=== PATIENT | male | born 1975 | race Caucasian/White ===

== ENCOUNTER 2017-01-01 18:03 | Emergency (ER) | payer OTHER ==
[2017-01-01] MEDS ORDERED: OXYCODONE-ACETAMINOPHEN 5-325 MG TABLET PO ONE (19:50)
[2017-01-01] MEDS ORDERED: AMOXICILLIN TR/POT CLAVULANATE 500-125 MG TAB PO ONE (19:50)
--- NOTE | 2017-01-01 20:10 | ER Document Report ---
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 He was seen by his workers comp doctor who did a x-ray and he has a CD of the x-ray which she states they told him he had a fracture to the end of his thumb that was bleeding. He did have a subungual hematoma. Patient states she was not treated with any pain medication at the [facility] where he went [facility]. He states the bleeding was not controlled while at [facility] but there is very minimal bleeding at this time. TRAVEL OUTSIDE OF THE [place] 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 Lives with: Family Family History: Arthritis, CAD, COPD, CVA, Hyperlipidemia, Hypertension, Malignancy Patient has suicidal ideation: No Patient has homicidal ideation: No - Past Medical History Cardiac Medical History: Reports: Hx Hypertension Pulmonary Medical History: Reports: None EENT Medical History: Reports: None Neurological Medical History: Reports: None Endocrine Medical History: Reports: None Renal/ Medical History: Reports: None Malignancy Medical History: Reports None GI Medical History: Reports: None Musculoskeltal Medical History: Reports Hx Arthritis, Reports Hx Musculoskeletal Deformity, Reports Hx Musculoskeletal Trauma Skin Medical History: Reports None Psychiatric Medical History: Reports: None Traumatic Medical History: Reports: None Infectious Medical History: Reports: None Past Surgical History: Reports: Hx Appendectomy, Hx Oral Surgery - [place] teeth and polyps removed from vocal cords, Hx Orthopedic Surgery - Knee surgery torn PCL MCL and meniscus - Immunizations Immunizations up to date: Yes Hx Diphtheria, Pertussis, Tetanus Vaccination: Yes Review of Systems - Review of Systems Constitutional: No symptoms reported EENT: No symptoms reported Cardiovascular: No symptoms reported Respiratory: No symptoms reported Gastrointestinal: No symptoms reported Genitourinary: No symptoms reported Male Genitourinary: No symptoms reported Musculoskeletal: Other - Injury to distal left thumb with a subungual hematoma Skin: Other - Subungual hematoma with bleeding to the end of the left thumb Hematologic/Lymphatic: No symptoms reported Neurological/Psychological: No symptoms reported Physical Exam - Vital signs Vitals: Temp Pulse Resp BP Pulse Ox 98.0 F 83 14 145/97 H 98 01/01/17 18:08 01/01/17 18:08 01/01/17 18:08 01/01/17 18:08 01/01/17 18:08 Interpretation: Normal - General General appearance: Appears well, Alert - HEENT Head: Normocephalic, Atraumatic Eyes: Normal Pupils: PERRL - Respiratory Respiratory status: No respiratory distress Chest status: Nontender Breath sounds: Normal Chest palpation: Normal - Cardiovascular Rhythm: Regular Heart sounds: Normal auscultation Murmur: No - Abdominal Inspection: Normal Distension: No distension Bowel sounds: Normal Tenderness: Nontender Organomegaly: No organomegaly - Back Back: Normal, Nontender - Extremities General upper extremity: Normal temperature General lower extremity: Normal inspection, Nontender, Normal color, Normal ROM , Normal temperature, Normal weight bearing. No: Benitez's sign Hand: Tender, Ecchymosis, Nail injury, No evidence of human bite, No evidence of FB, Swelling, Other - Subungual hematoma was bleeding from under the nail small laceration before the nail. Patient states he has a CD that shows a fracture to the tuft of the thumb left. Unable to read the CD - Neurological Neuro grossly intact: Yes Cognition: Normal Orientation: AAOx4 [place] Coma Scale Eye Opening: Spontaneous Page Coma Scale Verbal: Oriented [place] Coma Scale Motor: Obeys Commands Page Coma Scale Total: 15 Speech: Normal Motor strength normal: LUE, RUE, LLE, RLE Sensory: Normal - Psychological Associated symptoms: Normal affect, Normal mood - Skin Skin Temperature: Warm Skin Moisture: Dry Skin Color: Normal Course - Re-evaluation Re-evalutation: 01/01/17 21:08 Patient's hand was cleaned well with soap and water and peroxide. Consulted Dr. ferreira who came and examined the thumb he agreed with the plan to use trepanation to release the pressure from under the left thumbnail then the subcu thumb with some Betadine treat the patient with Percocet and Augmentin dressed the thumb is splinted and have him follow-up with orthopedics. These were all completed patient was sent home with a prescription for Percocet and Augmentin. Patient to follow-up with orthopedics by telephone on Wednesday to schedule an appointment for a open tuft fracture of the left thumb. 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 Exam: Normal Alignment checked and good: Yes - Nail Trephanation/Removal Left Thumb Nail Trepanation/Removal Location: Eburnation to the left thumb with return of blood Betadine prep applied: Yes Method of Drainage: Nail cauterized Sterile Dressing Applied: Yes Finger Splint: Yes Discharge - Discharge Clinical Impression: Open fracture of distal phalanx of thumb Qualifiers: Encounter type: initial encounter Fracture alignment: nondisplaced Laterality: left Qualified Code(s): S62.525B - Nondisplaced fracture of distal phalanx of left thumb, initial encounter for open fracture Subungual hematoma of left thumb Qualifiers: Encounter type: initial encounter Qualified Code(s): S60.112A - Contusion of left thumb with damage to nail, initial encounter Condition: Stable Disposition: HOME, SELF-CARE Additional Instructions: Tuft Fracture of the Finger The tip of your finger is broken (beneath the finger nail). While painful , this type of fracture is not serious. You can expect the bone to heal within three to four weeks. Elevating and ice packing the finger will help greatly in reducing pain and swelling. You will probably need a protective splint, initially. When you can push firmly on the tip of your finger without any pain, you no longer need to use the splint. If the fingernail becomes black and painful, bleeding has occurred under the nail. This may need to be drained. Sometimes the nail must be removed. Occasionally, the tissue under the nail must be sewn back together. Call the doctor or return for examination if pain becomes severe, or if numbness or severe discoloration occurs. Subungual Hematoma You have a collection of blood between the nail bed and nail, called a subungual hematoma. This injury is often very painful due to the pressure that builds up under the nail. The pressure is relieved by draining blood from beneath the nail, either by creating some small holes in it, or by the nail from the skin. This will usually stop the pain. Sometimes the nail must be removed completely to examine the nail bed for injury. You should elevate the injured digit as much as possible for the next two days. Usually the injured nail will separate from its bed over the next few weeks. A new nail will grow over the exposed nail bed. This may take two or three months. If swelling around the cuticle, redness, fever, or increasing pain occur, you should call the doctor immediately. Augmentin Augmentin is a mixture of amoxicillin and clavulanate. Amoxicillin is a member of the penicillin family. It covers the germs likely to cause ear, bronchial, and urinary infections better than plain penicillin. The addition of clavulanate allows it to cover staph infections of the skin, as well as resistant cases of ear and sinus infections. Your physician has chosen Augmentin for you because of the special nature of your situation. Augmentin is best taken with meals. Nausea after taking the medication is rare, but can occur. Diarrhea can occur, particularly in small children. Vaginal yeast infections, and oral thrush in infants are also common. Contact your physician if these problems occur. Allergy to penicillins is common. If you have had an allergic reaction to any drug of the penicillin family, you should never take any other penicillin. Notify your doctor at once if you develop hives, shortness of breath, swelling, or faintness. SPLINT PRECAUTIONS: A splint has been placed. This will protect the area while healing begins. Your problem does NOT normally require a cast. It MUST, however, be held still! Keep the splint on ALL THE TIME until instructed to remove it by the doctor. As you begin to use the area, be careful. You shouldn't do anything which causes discomfort -- you may disturb the injury even with the splint in place. After the initial period of rest and elevation, if splint does not prevent pain when you move, come back. You may require placement of a different splint , or a cast. If there is unexpected severe pain, or numbness, discoloration, or swelling beyond the splint, you should return at once. If you feel that the splint has broken or become loose, come back. ICE & ELEVATION: Apply ice packs frequently against the painful area. Many different schedules are recommended, such as "20 minutes on, 20 minutes off" or "one hour ice, two hours rest." If you need to work, you may need to go longer between ice treatments. You should plan to have the area ice packed AT LEAST one- fourth of the time. The ice should be applied over the wrap, tape, or splint, or over a layer of cloth -- not directly against the skin. Some ice bags have a built-in cloth and can be put directly on the skin. Your injured part should be elevated as much as possible over the next 48 hours. Try to keep the injury above the level of the heart. Avoid use of the injured area. Elevation and rest will decrease the swelling. USE OF ZZNM-OUR-VREEDHB IBUPROFEN: Ibuprofen (Advil, Nuprin, Medipren, Motrin IB) is a medication for fever and pain control. In addition, it has anti- inflammatory effects which may be beneficial, especially in the treatment of injuries. It's best to take ibuprofen with food. Persons with ulcer disease or allergy to aspirin should notify their physician of this before taking ibuprofen. Ibuprofen can be given every four to six hours, for a total of four doses daily. Age Pain or fever dose Antiinflammatory dose 6-8 yr 200 mg (1 tab) 200 mg (1 tab) 9-11 yr 200 mg (1 tab) 200-400 mg (1-2 tab) 11-14 yr 200-400 mg (1-2 tab) 400 mg (2 tab) 15-adult 400 mg (2 tab) 600 mg (3 tab) ORAL NARCOTIC MEDICATION: You have been given a prescription for pain control. This medication is a narcotic. It's best taken with food, as nausea can result if taken on an empty stomach. Don't operate machinery or drive within six hours of taking this medication. Do not combine this medicine with alcohol, or with any medication which can cause sedation (such as cold tablets or sleeping pills) unless you get permission from the physician. Narcotics tend to cause constipation. If possible, drink plenty of fluids and eat a diet high in fiber and fruits. Please be aware that prescription narcotics also have the potential for abuse. People become addicted to these medications because of the general sense of wellbeing that they induce. This feeling along with a significant reduction in tension, anxiety, and aggression provides a stimulating seductive quality to these drugs. Once your pain is under control, we encourage you to discard your unused narcotics. FOLLOW-UP CARE: If you have been referred to a physician for follow-up care, call the physician s office for an appointment as you were instructed or within the next two days. If you experience worsening or a significant change in your symptoms, notify the physician immediately or return to the Emergency Department at any time for re-evaluation. Prescriptions: Oxycodone HCl/Acetaminophen [Percocet 5-325 mg Tablet] 1 tab PO Q4HP PRN #15 tablet PRN Reason: Amox Tr/Potassium Clavulanate [Augmentin 875-125 Tablet] 1 tab PO BID 10 Days tablet Forms: Elevated Blood Pressure, Return to Work Referrals: FADY RIOS DO [ACTIVE STAFF] - Follow up as needed
[2017-01-01 20:24] VITALS: BP 137/85
== END 2017-01-01 20:24 | disposition home or self-care (01) ==
LOC: ER 18:03
PROC: 0H9QXZZ Drainage of Finger Nail, External Approach (ICD-10-PCS; principal; 2017-01-01)
DX: S62.525B Nondisplaced fracture of distal phalanx of left thumb, initial encounter for open fracture (principal); W27.8XXA Contact with other nonpowered hand tool, initial encounter; Y93.H3 Activity, building and construction; Y92.219 Unspecified school as the place of occurrence of the external cause; Y99.0 Civilian activity done for income or pay; I10 Essential (primary) hypertension; Z87.891 Personal history of nicotine dependence
CPT/HCPCS: 99283